=== PATIENT | female | born 1975 | race Hispanic/Latino ===

== ENCOUNTER 2019-04-22 09:28 | Outpatient (CLI) | payer OTHER ==
--- NOTE | 2019-04-22 10:39 | XRay Report ---
RIGHT HIP AND PELVIS 3 VIEWS INDICATION: Right hip pain. COMPARISON: No relevant prior imaging study available. FINDINGS: There is no acute skeletal abnormality. No significant degenerative changes. No femoral head osteonec rosis is seen. IMPRESSION: 1. No acute findings. LUMBAR SPINE 3 VIEWS INDICATION: Low back pain. COMPARISON: No relevant prior imaging study available. FINDINGS: There is subtle curvature of the lumbar spine with convexity to the left centered at L1-L2. Alignment is otherwise unremarkable. Vertebral body height is maintained. There is no listhesis. Mild discogen ic degenerative change throughout evidence by mild marginal osteophyte formation and mild joint space narrowing. The SI joints are within normal limits. IMPRESSION: 1. No acute findings. Signer Name: Jaylen Ramírez MD Signed: 04/22/2019 10:35 AM Workstation Name: [id number]
== END 2019-04-22 09:29 | disposition home or self-care (01) ==
LOC: SPVIMAG 09:28
PROVIDERS: ATTEND Family Medicine
DX: M25.561 Pain in right knee (principal); M54.5 Low back pain; M25.551 Pain in right hip
CPT/HCPCS: 72100